=== PATIENT | male | born 1940 | race American Indian/Alaskan Native ===

== ENCOUNTER 2016-12-09 12:08 | Day surgery (SDC) | payer MEDICARE ==
--- NOTE | 2016-11-26 09:05 | Admit Criteria Form ---
Admission Criteria Documentation: AMBULATORY SURGERY EXCEPTION CRITERIA Ambulatory Surgery Exception Criteria ( Place 'X' for any and all applicable criteria): Surgery or procedure performed on ambulatory basis may require inpatient stay for[A] ANY ONE of the following(1)(2)(3)(4)(5)(6)(7)(8)(9): [X] I. A preoperative situation, condition, or finding that warrants inpatient stay as indicated by ANY ONE of the following: [X] a) Inpatient care needed because of severity of a disease or condition rather than the surgery (eg, severe cardiac or respiratory disease, severe infection) (15) (16 ) (17) (18) [] b) Emergent procedure (eg, angioplasty for acute ischemia)(19) [] c) Complex surgical approach or situation as indicated by ANY ONE of the following(3): [] i) Open approach needed instead of usual endoscopic, transcatheter, or other less invasive procedure [] ii) Difficult approach because of previous operation [] iii) Airway monitoring required after open neck procedures(20)(21) [] iv) Large mass requiring unusually extensive dissection [] v) Additional complicating feature requiring inpatient care (eg, drain management)(22(23): [] d) Major surgery in a pt with high anesthetic risk as indicated by ANY ONE of the following (2)(3)(5)(7)(8): [] i) ASA risk class III or higher (severe systemic disease impairing function) [D] [] ii) Advanced age (eg, older than 85 years)(14)(24) [] iii) Symptomatic heart failure(25) [] iv) Symptomatic asthma or COPD(8)(21) [] v) Morbid obesity with hemodynamic or respiratory problems(20)( 21)(26)(27) [] vi) Obstructive sleep apnea(20)(21) [] vii) Former premature infants who are younger than 60 weeks [] viii) High risk for severe postoperative abnormalities (eg, severe postoperative hypocalcemia after parathyroidectomy for severe hyperparathyroidism)(27)( 28) [] ix) Unstable angina(25) [] e) Drug-related risk requiring inpatient stay as indicated by ANY ONE of the following(5)(10)(14)(32)(33) [] i) Procedure requires discontinuing drugs or other therapy (eg , antiarrhythmic medication, antiseizure medication), which necessitates inpatient observation or treatment.(18)(31) [] ii) Major surgery and high risk drug use as indicated by ANY ONE of the following: [] 1) Active abuse of cocaine or similar drug [] 2) Monoamine oxidase inhibitor use [] 3) Other drug identified as posing risk [] f) Inadequate outpatient care situation as indicated by ANY ONE of the following(5)(10)(14)(32)(33) [] i) Patient lives remote from medical facility and procedure has urgent complication potential, and temporary nearby residence cannot be arranged [] ii) Patient will have postprocedure incapacitation and inadequate assistance at home, or alternative level of care cannot be arranged. [] iii) Patient will have long general anesthesia or procedure side effect resolution time, and competent person to stay with patient on first postoperative night at home or alternative level of care cannot be arranged. []iv) Other inadequate outpatient situation that cannot be handled by other means [] II. A perioperative event, condition, or finding that warrants inpatient stay as indicated by ANY ONE of the following (1)(2)(3): [] a) Inadequate physiologic recovery: cardiovascular, respiratory, or hemodynamic status not normal or near preoperative baseline(18) [] b) Hemodynamic instability [] c) Patient not alert with near normal or baseline mental status [] d) Temperature not normal or as expected and not appropriate for outpatient treatment of condition [] e) Ambulatory or appropriate activity level status not yet achieved post procedure [E](34)(35)(36) [] f) Operative site not appropriate (eg, unexpected or excessive drainage or bleeding) [] g) Postoperative effects not resolved or adequately managed (eg, significant pain or vomiting not appropriate for outpatient or next level of care)(10)(12) [] h) Complicating features requiring inpatient care as indicated by ANY ONE of the following(37): [] i) Severe complications of procedure (eg, bowel injury, airway compromise, vascular injury,severe hemorrhage) [] ii) Extensive (eg, dissection far beyond usual scope of procedure ) or prolonged (eg, 120 minutes beyond usual) surgery needed requiring inpatient postoperative care [] iii) Conversion to an open or complex procedure that requires inpatient care (eg, open vs laparoscopic cholecystectomy, abdominal vs vaginal hysterectomy)(38) [] iv) Comorbid condition or test result identified during or post procedure that requires inpatient care (7) [] v) Malignant hyperthermia(30) [] vi) Other complicating feature requiring inpatient care(22)(23) Inpatient stay may be needed until ALL of the following are present (1)(2)(3)(4) (5)(6)(10)(14)(33)(40): []a) Physiologic recovery: cardiovascular, respiratory, and hemodynamic status normal or near preoperative baseline []b) Hemodynamic stability []c) Patient alert, with near normal or baseline mental status []d) Temperature appropriate: patient afebrile or temperature appropriate for outpt treatment of condition []e) Activity level appropriate: ambulatory or appropriate activity level post procedure []f) Operative site appropriate as indicated by ALL of the following: []i) Site dry or with expected drainage []ii) Any blood noted is as expected for procedure. []g) Postoperative effects resolved or managed as indicated by ALL of the following: []i) Pain management appropriate for outpatient (or next level of) care(10) []ii) Minimal nausea and vomiting: if present, successfully treated with oral medication(12) []iii) Headache, dizziness, or drowsiness (if present) are mild. []h) Voiding status acceptable as indicated by ANY ONE of the following: []i) Voiding spontaneously []ii) No voiding but instructions given for follow-up in 6 to 8 hours []iii) Urinary catheter in place, and instructions given for follow-up []i) Complicating features requiring inpatient care manageable at a lower level of care(37) []j) Comorbid conditions manageable at a lower level of care(37) The original [employer] content created by [employer] has been revised. The portions of the content which have been revised are identified through the use of italic text or in bold, and [employer] has neither reviewed nor approved the modified material. All other unmodified content is copyright [employer]. Please see references footnoted in the original [employer] edition 2016
[~2016-12-09 12:08] MED LIST: ANCEF/STERILE WATER 2 GM/20 ML IV NR; NACL 0.9% 1000 ML 1,000 ML IV SCH; PEPCID PO NR
--- NOTE | 2016-12-09 13:51 | Anesthesia Day of Surgery ---
Anesthesia Day of Surgery - Day of Surgery Patient Examined: Yes Patient H&P Reviewed: Yes Patient is NPO: Yes
--- NOTE | 2016-12-09 13:53 | Anesthesia Consultation ---
Anesthesia Consult and Med Hx Date of service: 12/09/16 - Airway Anesthetic Teeth Evaluation: Good ROM Head & Neck: Adequate Mental/Hyoid Distance: Adequate Mallampati Class: Class II Intubation Access Assessment: Probably Good - Pulmonary Exam CTA: Yes - Cardiac Exam Cardiac Exam: RRR - Pre-Operative Health Status ASA Pre-Surgery Classification: ASA2 Proposed Anesthetic Plan: General - Pulmonary Hx Smoking: No Hx Sleep Apnea: No (IVAN PRE SCREEN HIGH RISK) - Cardiovascular System Hx Hypertension: Yes (X 10 YRS) - Other Systems Hx Cancer: Yes (prostate)
[2016-12-09] MEDS ORDERED: PEPCID PO NR (14:00)
[2016-12-09] MEDS ORDERED: XYLOCAINE MPF 2% ONE (14:10)
[2016-12-09] MEDS ORDERED: DIPRIVAN 10 MG/ML IV ONE (14:10)
[2016-12-09] MEDS ORDERED: DILAUDID ONE (14:10)
[2016-12-09] MEDS ORDERED: WATER FOR IRRIG STERILE IR ONE (14:34)
[2016-12-09] MEDS ORDERED: ZOFRAN ONE (14:56)
--- NOTE | 2016-12-09 15:00 | Short Stay Summary ---
Short Stay Documentation Date of service: 12/09/16 - History H&P: obtained from office - Allergies and Medications Current Medications: Allergies oxytetracycline [From Terramycin] Adverse Reaction (Verified 11/30/16 16:58) Rash oxytetracycline HCl [From Terramycin] Adverse Reaction (Verified 11/30/16 16:58) Rash Home Medications Medication Instructions Recorded Confirmed Last Taken Type Atorvastatin [Lipitor] 40 mg PO QHS 08/26/13 12/09/16 12/08/16 21:00 History Bicalutamide 50 mg PO QHS 08/26/13 12/09/16 12/08/16 21:00 History Lisinopril [Zestril] 40 mg PO QDAY 08/26/13 12/09/16 12/09/16 09:00 History Aspirin [Adult Low Dose Aspirin EC] 81 mg PO DAILY 12/02/16 12/09/16 12/02/16 09 :00 History Active Medications Cefazolin Sodium (Ancef/Sterile Water 2 Gm/20 Ml) 2 gm IV PREOP NR Stop: 12/09/16 23:59 Famotidine (Pepcid) 20 mg PO PREOP NR Stop: 12/09/16 23:00 Sodium Chloride (Nacl 0.9% 1000 Ml) 1,000 mls @ 75 mls/hr IV DIRECT WINSTON Last Admin: 12/09/16 13:50 Dose: 75 mls/hr - Brief post op/procedure progress note Date of procedure: 12/09/16 Pre-op diagnosis: urethral stricture Post-op diagnosis: same Procedure: cysto, rpg, DVIU Anesthesia: GETA Surgeon: RADHA SPEARS Estimated blood loss: none Pathology: none Condition: stable - Hospital course Hospital course: yonathan & olesya on chart - Disposition Condition at discharge: Stable Disposition: DC-01 TO HOME OR SELFCARE Short Stay Discharge Plan Follow up with: PRIMARY CARE,MD [Primary Care Provider] - 7 Days
--- NOTE | 2016-12-09 16:03 | Post Anesthesia Evaluation ---
- Post Anesthesia Evaluation Patient Participated: Yes Airway Patent: Yes Stable Respiratory Function: Yes Nausea/Vomiting: No Temp > 96.8F: Yes Pain Manageable: Yes Adequeate Hydration: Yes Anesthesia Complications: No
[2016-12-09 19:12] VITALS: BP 142/67
--- NOTE | 2016-12-10 10:01 | Fluoroscopy Report ---
Retropyelogram. History: Urethral stricture. Findings: There is mild fullness of the pelvicalyceal system on the right. The right ureter is normal. The left ureter is unremarkable. There is incomplete opacification of the left pelvicalyceal system. Impression: Mild right pelvocaliectasis. There is incomplete evaluation of the left pelvicalyceal system.
--- NOTE | 2016-12-19 13:35 | Post Operative Note ---
Date of procedure: 12/09/16 Pre-op diagnosis: urethral stricture Post-op diagnosis: same Procedure: cysto, rpg, DVIU Indications This 76-year-old gentleman with long history of prostate cancer status post radiation with results resultant urethral stricture. He presents now for surgical intervention Procedure Patient was taken to the operative suite placed in a supine position up adequate general anesthesia placed in the dorsolithotomy position, prepped and draped in a sterile fashion. Cystoscopy was performed with a 22 [place] Storz cystoscope, tight stricture could be seen at the bulbar urethra. A 0.035 Glidewire was advanced into the bladder, Black knife was used to make a cut at the 12 o'clock position. The scope was advanced into the bladder no tumors or stones were noted. Bilateral retrograde pyelograms were obtained with an 8 [place] Ty catheter and a 2 mL of contrast no filling defects or obstruction. He was noted to have some J hooking of the ureters. 20 [place]-tip catheter was advanced over the wire. Patient tolerated the procedure was activated taken the recovery room. Anesthesia: GETA Surgeon: RADHA SPEARS Estimated blood loss: none Pathology: none Condition: stable Disposition: PACU
== END 2016-12-09 17:50 | disposition home or self-care (01) ==
LOC: OR 12:08
PROVIDERS: ATTEND Urology
DX: N35.8 Other urethral stricture (principal); I10 Essential (primary) hypertension; Z85.46 Personal history of malignant neoplasm of prostate; Z88.1 Allergy status to other antibiotic agents; Z79.82 Long term (current) use of aspirin; Z79.899 Other long term (current) drug therapy
CPT/HCPCS: 52276; 74420; A4217; C1769; J0690; J1170; J2405; J2704; J7030; Q9967

== ENCOUNTER 2021-11-19 07:12 | Day surgery (SDC) | payer MEDICARE ==
[2021-11-19] MEDS ORDERED: LACTATED RINGERS 1,000 ML ONE (08:25)
[2021-11-19] MEDS ORDERED: HYDROmorphone 0.5 MG/0.5 ML INJ IV PRN ×2 (08:59)
[2021-11-19] MEDS ORDERED: ONDANSETRON 4 MG/2 ML INJ IV PRN (08:59)
[2021-11-19] MEDS ORDERED: ceFAZolin/STERILE WATER 2 GM/20 ML SYRINGE IV NR (09:00)
[2021-11-19] MEDS ORDERED: LACTATED RINGERS 1,000 ML IV SCH (09:00)
[2021-11-19] MEDS ORDERED: MIDAZOLAM 2 MG/2 ML INJ IV NR (09:00)
--- NOTE | 2021-11-19 09:00 | Anesthesia Day of Surgery ---
Anesthesia Day of Surgery - Day of Surgery Patient Examined: Yes Patient H&P Reviewed: Yes Patient is NPO: Yes
--- NOTE | 2021-11-19 09:01 | Anesthesia Consultation ---
Anesthesia Consult and Med Hx Date of service: 11/19/21 - Airway Anesthetic Teeth Evaluation: Good ROM Head & Neck: Adequate Mental/Hyoid Distance: Adequate Mallampati Class: Class II Intubation Access Assessment: Good - Pre-Operative Health Status ASA Pre-Surgery Classification: ASA3 Proposed Anesthetic Plan: General - Pulmonary Hx Smoking: No Hx Respiratory Symptoms: Yes SOB: Yes (REID) Hx Sleep Apnea: Yes - Cardiovascular System Hx Hypertension: Yes (X 10 YRS) - Central Nervous System Hx Back Pain: Yes (AND NECK) Hx Psychiatric Problems: No - Gastrointestinal Hx Gastroesophageal Reflux Disease: No - Endocrine Hx Renal Disease: Yes - Hematic Hx Anemia: No Hx Sickle Cell Disease: No - Other Systems Hx Alcohol Use: No Hx Substance Use: No Hx Cancer: Yes (prostate)
[2021-11-19] MEDS ORDERED: ceFAZolin/Water 2 GM/20 ML 2 GM/20 ML SYRINGE IV ONE (09:03)
[2021-11-19] MEDS ORDERED: propofoL 200 MG/20 ML VIAL IV ONE (10:27)
[2021-11-19] MEDS ORDERED: LIDOCAINE MPF (2%) 20 MG/1 ML VIAL 5 ML ONE (10:27)
[2021-11-19] MEDS ORDERED: fentaNYL 100 MCG/2 ML INJ ONE ×2 (10:27→11:16)
[2021-11-19] MEDS ORDERED: KETOROLAC 30 MG/1 ML INJ ONE (10:35)
[2021-11-19] MEDS ORDERED: ONDANSETRON 4 MG/2 ML INJ ONE (10:35)
[2021-11-19] MEDS ORDERED: dexAMETHasone 20 MG/5 ML VIAL ONE (10:35)
[2021-11-19] MEDS ORDERED: ePHEDrine SULFATE 50 MG/1 ML INJ ONE (11:02)
[2021-11-19] MEDS ORDERED: WATER FOR IRRIG STERILE 2000 ML IR ONE (12:00)
--- NOTE | 2021-11-19 12:24 | Short Stay Summary ---
Short Stay Documentation Date of service: 11/19/21 - History H&P: obtained from office - Allergies and Medications Current Medications: Allergies oxytetracycline [From Terramycin] Adverse Reaction (Verified 11/30/16 16:58) Rash oxytetracycline HCl [From Terramycin] Adverse Reaction (Verified 11/30/16 16:58) Rash Home Medications Medication Instructions Recorded Confirmed Last Taken Type Atorvastatin [Lipitor] 80 mg PO QHS 08/26/13 11/19/21 11/18/21 20:00 History Aspirin [Adult Low Dose Aspirin EC] 81 mg PO DAILY 12/02/16 11/19/21 11/14/21 09:00 History Colesevelam [Welchol] 2 tab PO BID 11/12/21 11/19/21 11/18/21 17:00 History Enzalutamide [Xtandi] 40 mg PO DAILY 11/12/21 11/19/21 11/18/21 09:00 History Losartan [Cozaar] 100 mg PO QDAY 11/12/21 11/19/21 11/18/21 09:00 History Orgovyx 120 mg PO DAILY 11/12/21 11/19/21 11/18/21 09:00 History Active Medications Cefazolin Sodium (Cefazolin/Sterile Water 2 Gm/20 Ml Syringe) 2 gm IV PREOP NR Stop: 11/19/21 23:00 Hydromorphone HCl (Hydromorphone 0.5 Mg/0.5 Ml Inj) 0.25 mg IV Q10MIN PRN PRN Reason: Pain, Moderate (4-6) Stop: 11/19/21 20:00 Hydromorphone HCl (Hydromorphone 0.5 Mg/0.5 Ml Inj) 0.5 mg IV Q10MIN PRN PRN Reason: Pain , Severe (7-10) Stop: 11/19/21 20:00 Lactated Ringer's (Lactated Ringers) 1,000 mls @ 125 mls/hr IV DIRECT WINSTON Last Admin: 11/19/21 08:20 Dose: 125 mls/hr Midazolam HCl (Midazolam 2 Mg/2 Ml Inj) 2 mg IV PREOP NR Stop: 11/19/21 23:59 Last Admin: 11/19/21 09:05 Dose: 2 mg - Brief post op/procedure progress note Date of procedure: 11/19/21 Pre-op diagnosis: rt ueteral stones, s/p stent Post-op diagnosis: same Procedure: cysto, rt rpg, ureteroscopy, laser, stent exchange (26 x 6) with internal string Anesthesia: ILIANA Surgeon: RADHA SPEARS Condition: stable - Hospital course Hospital course: macrobid & norco - Disposition Condition at discharge: Stable Disposition: 01 HOME / SELF CARE / HOMELESS Short Stay Discharge Plan Follow up with: MARY CASTILLO MD [Primary Care Provider] - 7 Days
--- NOTE | 2021-11-19 13:12 | Operative Report ---
DATE OF SURGERY: 11/19/2021 PREOPERATIVE DIAGNOSIS: Right ureteral stone x 3, status post stent placement. POSTOPERATIVE DIAGNOSIS: Right ureteral stone x 3, status post stent placement. PROCEDURE PERFORMED: Cystoscopy, right retrograde pyelogram, right ureteroscopy, holmium laser lithotripsy, double-J stent exchange (6-[place]izen [place] 26 cm) with an internal string. SURGEON: Owen Osuna MD ANESTHESIA: General. ESTIMATED BLOOD LOSS: Minimal. FLUIDS: Crystalloid. COMPLICATIONS: No complications. INDICATIONS: This patient is an 81-year-old gentleman, seen at [facility] with a diagnosis of impacted right ureteral stones. He underwent cystoscopy, stent placement, was found to have some scar tissue. 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 It was difficult to manipulate the scopes. He also has a penile prosthesis. DESCRIPTION OF PROCEDURE: Cystoscopy was performed. The patient had some erythema at the area of the bladder neck. A 0.035 Glidewire was placed. I was able to advance the scope with some difficulty. The stent was then placed, could pull the stent out to the meatus, was not able to thread a wire over it. Suspect some encrustation. Therefore, I did cystoscopy. I was able to advance a wire up the ureter. Multiple attempts to place a rigid scope was unsuccessful. I then used an access sheath to dilate the distal ureter. I was able to place a flexible scope up to the renal pelvis, shot a pyelogram, was also noted to have multiple little stones in the mid ureter. Using a 200 micron holmium laser starting at 4 carnes going up to 10, lithotripsy of the stones were performed. Once broken up, I was able to break up the fragments. Due to the edema, I elected to replace the stent and therefore a 6-[place] 26 cm double-J stent with a short internal string was left indwelling. Also, I placed an 18-Citizen [place] Díaz catheter over a wire. Rectal exam was benign. He was extubated and taken to recovery room in stable condition. He will go home on [place] and Macrobid. TID: [id number] RECEIPT: [id number] [facility]/ANNE
--- NOTE | 2021-11-19 13:26 | Fluoroscopy Report ---
FLUOROSCOPY RETROGRADE UROGRAPHY INDICATION: CALCULUS OF RIGHT KIDNEY. COMPARISON: None. IMPRESSION: 1.4 minutes of fluoroscopy time was provided by radiology for right ureteral stent excha nge by urology. 8 fluoroscopic images are presented demonstrating ureteral stent exchange which appe ars in good position on the final image. There appears to be pelvocaliectasis in the right kidney. Pl ease correlate with the procedural report by urology. Signer Name: Yahir Clifford Jr, MD Signed: 11/19/2021 1:21 PM Workstation Name: [id number]
[2021-11-19] MEDS ORDERED: hydrALAZINE 20 MG/1 ML INJ ONE ×2 (13:38→14:17)
[2021-11-19] MEDS: hydrALAZINE 20 MG/1 ML INJ IV PRN ×2 (13:40→14:10)
[2021-11-19 15:46] VITALS: BP 159/70
--- NOTE | 2021-11-19 16:02 | Post Anesthesia Evaluation ---
- Post Anesthesia Evaluation Patient Participated: Yes Airway Patent: Yes Stable Respiratory Function: Yes Nausea/Vomiting: No Temp > 96.8F: Yes Pain Manageable: Yes Adequeate Hydration: Yes Anesthesia Complications: No Block Receding Appropriately: Not Applicable Patient on Ventilator: No
== END 2021-11-19 15:15 | disposition home or self-care (01) ==
LOC: OR 07:12
PROVIDERS: ATTEND Urology
DX: N20.1 Calculus of ureter (principal); E78.00 Pure hypercholesterolemia, unspecified; I10 Essential (primary) hypertension; G47.30 Sleep apnea, unspecified; M19.90 Unspecified osteoarthritis, unspecified site; Z79.899 Other long term (current) drug therapy; Z88.8 Allergy status to other drugs, medicaments and biological substances; Z79.82 Long term (current) use of aspirin; Z98.41 Cataract extraction status, right eye; Z98.42 Cataract extraction status, left eye; Z85.46 Personal history of malignant neoplasm of prostate; Z87.440 Personal history of urinary (tract) infections; Z96.641 Presence of right artificial hip joint; Z98.890 Other specified postprocedural states; Z68.32 Body mass index [BMI] 32.0-32.9, adult
CPT/HCPCS: 52356; 74420; C1726; C1758; C1769; C2617; J0360; J0690; J1100; J1885; J2250; J2405; J2704; J3010; J3490; J7120; Q9967